=== PATIENT | male | born 1990 | race Caucasian/White ===

== ENCOUNTER 2016-10-19 01:12 | Inpatient (IN) | payer MEDICAID, OTHER ==
[~2016-10-19] VITALS: Ht 188 cm; Wt 113.4 kg
[2016-10-19] MEDS ORDERED: MORPHINE SULFATE 4 MG/ML CPJ (NOT FOR IM USE) IV ONE ×2 (04:00→06:00)
[2016-10-19] MEDS ORDERED: ONDANSETRON HCL 4MG/2ML VIAL IV ONE ×2 (04:00→06:00)
[2016-10-19] MEDS ORDERED: MORPHINE SULFATE 2 MG/ML CPJ (NOT FOR IM USE) IV NR (04:15)
[2016-10-19 04:36] LABS: BASOPHILS % 0.6 % (0.0-2.0); EOSINOPHILS % 2.7 % (0.0-5.0); HEMATOCRIT. 43.9 % (42.0-52.0); HEMOGLOBIN. 15.1 g/dL (14.0-18.0); LYMPHOCYTES % 41.5 % (20.0-50.0); MEAN CORPUSCULAR HEMOGLOBIN 28.7 pg (28.0-32.0); MEAN CORPUSCULAR VOLUME 83.5 fL (80.0-94.0); MEAN PLATELET VOLUME 9.4 fl (7.4-10.4); MONOCYTES % 6.8 % (2.0-8.0); NEUTROPHILS % 48.4 % (40.0-76.0); PLATELET 186 x1000/uL (130-400); RED BLOOD CELL COUNT 5.26 mill/uL (4.7-6.1); RED CELL DISTRIBUTION WIDTH 13.6 % (11.6-14.6)
[2016-10-19 04:50] LABS: CARBON DIOXIDE 29 mEq/L (21-32); CHLORIDE 106 mEq/L (98-107)
[2016-10-19] MEDS ORDERED: PIPERACILLIN/TAZOBACTAM 3.375GM/50ML PREMIX IV SCH (06:00)
[2016-10-19] MEDS ORDERED: SKIN ADHESIVE 0.7 GM EA TOP ONE (06:58)
[2016-10-19] MEDS ORDERED: BUPIVACAINE HCL 0.5% (5MG/ML) 50ML ONE (06:59)
[2016-10-19] MEDS ORDERED: ONDANSETRON HCL 4MG/2ML VIAL IV PRN ×2 (08:45→11:30)
[2016-10-19] MEDS ORDERED: HYDROCODONE/ACETAMINOPHEN 5/325MG TABLET PO PRN ×2 (08:45)
[2016-10-19] MEDS ORDERED: MORPHINE SULFATE 2 MG/ML CPJ (NOT FOR IM USE) IV PRN ×2 (08:45)
[2016-10-19] MEDS ORDERED: MIDAZOLAM HCL 2 MG/2 ML VIAL ONE (09:56)
[2016-10-19] MEDS ORDERED: PROPOFOL 200MG/20ML VIAL IV ONE (09:57)
[2016-10-19] MEDS ORDERED: SUCCINYLCHOLINE CHLORIDE 200MG/10ML VIAL IV ONE (09:57)
[2016-10-19] MEDS ORDERED: ROCURONIUM BROMIDE 10MG/ML VIAL 5ML IV ONE (09:57)
[2016-10-19] MEDS ORDERED: FENTANYL CITRATE/PF 50MCG/ML 2ML VIAL ONE (09:57)
[2016-10-19] MEDS ORDERED: LIDOCAINE HCL 1% 20ML VIAL (Pyxis) INJ ONE (09:57)
[2016-10-19] MEDS ORDERED: METOCLOPRAMIDE HCL 10MG/2ML VIAL ONE (10:23)
[2016-10-19] MEDS ORDERED: ONDANSETRON HCL 4MG/2ML VIAL ONE (10:23)
[2016-10-19] MEDS ORDERED: DEXAMETHASONE 4MG/ML 1ML VIAL ONE (10:39)
[2016-10-19] MEDS ORDERED: GLYCOPYRROLATE 0.2 MG/ML 2ML VIAL ONE (10:41)
[2016-10-19] MEDS ORDERED: NEOSTIGMINE METHYLSULFATE 1MG/ML 10 ML VIAL ONE (10:41)
[2016-10-19] MEDS ORDERED: SODIUM CHLORIDE 0.9% 1,000 ML IV SCH (11:22)
[2016-10-19] MEDS ORDERED: HYDROMORPHONE HCL/PF 2MG/ML CPJ IV PRN (11:30)
[2016-10-19] MEDS ORDERED: SODIUM CHLORIDE 0.9% 10ML VIAL ONE (14:42)
[2016-10-19] MEDS ORDERED: IOHEXOL-300 100 ML BOTTLE ONE (14:42)
[2016-10-19 15:00] VITALS: BP 108/51
[2016-10-19 16:00] VITALS: BP 108/51
[2016-10-19] MEDS: DEXT 5%/0.45% NACL KCL 20MEQ/L 1,000 ML IV SCH (17:29)
[2016-10-19 19:44] LABS: BASOPHILS % 0.5 % (0.0-2.0); HEMATOCRIT. 45.2 % (42.0-52.0); HEMOGLOBIN. 15.3 g/dL (14.0-18.0); LYMPHOCYTES % 14.5 % (20.0-50.0); MEAN CORPUSCULAR HEMOGLOBIN 28.6 pg (28.0-32.0); MEAN CORPUSCULAR VOLUME 84.3 fL (80.0-94.0); MEAN PLATELET VOLUME 9.4 fl (7.4-10.4); MONOCYTES % 1.2 % (2.0-8.0); NEUTROPHILS % 83.8 % (40.0-76.0); PLATELET 198 x1000/uL (130-400); RED BLOOD CELL COUNT 5.36 mill/uL (4.7-6.1); RED CELL DISTRIBUTION WIDTH 13.6 % (11.6-14.6)
[2016-10-19 20:00] VITALS: BP 110/75
[2016-10-19 20:02] LABS: CHLORIDE 107 mEq/L (98-107)
[2016-10-19 20:06] LABS: CARBON DIOXIDE 23 mEq/L (21-32)
[2016-10-19] MEDS ORDERED: ACETAMINOPHEN 325MG TABLET PO PRN (20:45)
[2016-10-19 23:24] LABS: CLARITY URINE CLEAR (CLEAR); COLOR URINE YELLOW (YELLOW); GLUCOSE URINE NEGATIVE (NEGATIVE); KETONES URINE NEGATIVE (NEGATIVE); LEUKOCYTE ESTERASE URINE NEGATIVE (NEGATIVE); NITRITE URINE NEGATIVE (NEGATIVE); OCCULT BLOOD URINE NEGATIVE (NEGATIVE); PROTEIN URINE NEGATIVE (NEGATIVE); SPECIFIC GRAVITY URINE 1.011 (1.005-1.030)
[2016-10-20] VITALS: BP 112/64
[2016-10-20] MEDS: DEXT 5%/0.45% NACL KCL 20MEQ/L 1,000 ML IV SCH (04:04)
[2016-10-20 04:30] VITALS: BP 108/59
[2016-10-20 07:42] VITALS: BP 98/59
[2016-10-20 07:48] VITALS: BP 98/59
[2016-10-20 10:28] LABS: BASOPHILS % 0.3 % (0.0-2.0); EOSINOPHILS % 0.4 % (0.0-5.0); HEMATOCRIT. 41.1 % (42.0-52.0); LYMPHOCYTES % 38.4 % (20.0-50.0); MEAN CORPUSCULAR HEMOGLOBIN 28.5 pg (28.0-32.0); MEAN PLATELET VOLUME 9.3 fl (7.4-10.4); MONOCYTES % 5.8 % (2.0-8.0); NEUTROPHILS % 55.1 % (40.0-76.0); PLATELET 171 x1000/uL (130-400); RED CELL DISTRIBUTION WIDTH 13.4 % (11.6-14.6)
[2016-10-20 10:49] LABS: CARBON DIOXIDE 25 mEq/L (21-32); CHLORIDE 108 mEq/L (98-107)
[2016-10-20] MEDS ORDERED: POTASSIUM CHLORIDE 20MEQ TABLET SR PO NR (11:45)
[2016-10-20 12:00] VITALS: BP 109/73
[2016-10-20 14:12] VITALS: BP 109/73
== END 2016-10-20 15:10 | disposition home or self-care (01) | DRG 225 ==
LOC: ER 04:14 → 8WST 06:29 → EDBEDREQSVC 06:33
PROVIDERS: ADMIT Family Medicine; ATTEND Family Medicine
PROC: 0DTJ4ZZ Resection of Appendix, Percutaneous Endoscopic Approach (ICD-10-PCS; principal; 2016-10-19 10:00)
DX: K35.80 Unspecified acute appendicitis (principal); K76.0 Fatty (change of) liver, not elsewhere classified; E86.0 Dehydration; E66.9 Obesity, unspecified; Z68.32 Body mass index [BMI] 32.0-32.9, adult
CPT/HCPCS: 36415; 73706; 74177; 80053; 81003; 85025; 87040; 87086; 88304; 99285; A4216; J0330; J1100; J1170; J2250; J2270; J2405; J2543; J2704; J2710; J2765; J3010; J3490; J7030; J7050; Q9967

== ENCOUNTER 2017-02-12 02:46 | Emergency (ER) | payer MEDICAID ==
[~2017-02-12] VITALS: Ht 188 cm; Wt 114.0 kg
[2017-02-12] MEDS ORDERED: VISCOUS LIDOCAINE 2% 15 ML UDC PO ONE (03:30)
[2017-02-12] MEDS ORDERED: MAGNESIUM/ALUMINUM HYDROXIDE/SIMETHICONE 30ML UDC PO ONE (03:30)
[2017-02-12 05:04] VITALS: BP 147/84
== END 2017-02-12 05:10 | disposition home or self-care (01) ==
LOC: ER 02:57
DX: M94.0 Chondrocostal junction syndrome [Tietze] (principal); R03.0 Elevated blood-pressure reading, without diagnosis of hypertension; M54.2 Cervicalgia
CPT/HCPCS: 71010; 93005; 99284; Z7610

== ENCOUNTER 2018-10-19 20:21 | Emergency (ER) | payer MEDICAID ==
[~2018-10-19] VITALS: Ht 190.5 cm; Wt 130.7 kg
[2018-10-19] MEDS ORDERED: IBUPROFEN 600MG TABLET PO STA (22:21)
[2018-10-19 23:05] VITALS: BP 122/82
== END 2018-10-20 00:24 | disposition home or self-care (01) ==
LOC: ER 20:21
DX: J06.9 Acute upper respiratory infection, unspecified (principal); R51 Headache; R03.0 Elevated blood-pressure reading, without diagnosis of hypertension
CPT/HCPCS: 71045; 93005; 99283

== ENCOUNTER 2018-11-19 02:01 | Emergency (ER) | payer MEDICAID ==
[~2018-11-19] VITALS: Ht 188 cm; Wt 114.0 kg
[2018-11-19 04:17] LABS: BASOPHILS % 0.3 % (0.0-2.0); EOSINOPHILS % 3.6 % (0.0-5.0); HEMATOCRIT. 43.7 % (42.0-52.0); HEMOGLOBIN. 14.8 g/dL (14.0-18.0); LYMPHOCYTES % 29.3 % (20.0-50.0); MEAN CORPUSCULAR VOLUME 85.9 fL (80.0-94.0); MONOCYTES % 6.8 % (2.0-8.0); PLATELET 185 x1000/uL (130-400); RED BLOOD CELL COUNT 5.09 mill/uL (4.7-6.1); RED CELL DISTRIBUTION WIDTH 13.7 % (11.6-14.6)
[2018-11-19 04:24] LABS: CHLORIDE 112 mEq/L (98-107)
[2018-11-19 04:25] VITALS: BP 116/80
== END 2018-11-19 06:19 | disposition home or self-care (01) ==
LOC: ER 02:01
DX: R00.2 Palpitations (principal)
CPT/HCPCS: 36415; 71045; 80053; 84484; 85025; 85379; 93005; 99284; Z7610

== ENCOUNTER 2019-01-06 15:29 | Emergency (ER) | payer MEDICAID ==
[~2019-01-06] VITALS: Ht 188 cm; Wt 104.0 kg
[2019-01-06] MEDS: IBUPROFEN 600MG TABLET PO ONE (16:42)
[2019-01-06 17:34] VITALS: BP 119/72
== END 2019-01-06 17:38 | disposition home or self-care (01) ==
LOC: ER 15:29
DX: J10.1 Influenza due to other identified influenza virus with other respiratory manifestations (principal); R50.81 Fever presenting with conditions classified elsewhere; Z90.49 Acquired absence of other specified parts of digestive tract
CPT/HCPCS: 87804; 99283